=== PATIENT | male | born 1985 | race Caucasian/White ===

== ENCOUNTER 2021-03-12 06:02 | Emergency (ER) | payer MEDICAID ==
[~2021-03-12] VITALS: Ht 154.9 cm; Wt 56.7 kg
[2021-03-12 06:03] VITALS: BP 109/63
--- NOTE | 2021-03-12 06:53 | NUR ---
DR MCWILLIAMS AT THE BED SIDE
[2021-03-12] MEDS ORDERED: IBUP-1955 PO (07:13)
--- NOTE | 2021-03-12 07:45 | NUR ---
covid 19 swab collected and sent to lab
--- NOTE | 2021-03-12 07:49 | NUR ---
Patient discharged to home in stable condition. Written and verbal after care instructions given. Patient verbalizes understanding of instruction.
== END 2021-03-12 07:48 | disposition home or self-care (01) ==
LOC: ER 06:04
DX: U07.1 COVID-19 (principal)
CPT/HCPCS: 99283; C9803; U0003